=== PATIENT | female | born 1990 | race Asian ===

== ENCOUNTER 2017-05-28 02:40 | Inpatient (IN) | payer SELFPAY ==
[~2017-05-28] VITALS: Ht 162 cm; Wt 47.0 kg
[2017-05-28] MEDS: LACTATED RINGERS 1,000 ML IV SCH ×2 (03:25→04:40)
[2017-05-28] MEDS ORDERED: NALBUPHINE HYDROCHLORIDE 10 MG/ML VIAL ONE (03:44)
[2017-05-28] MEDS ORDERED: PROMETHAZINE 25 MG/ML VIAL ONE (03:44)
[2017-05-28 03:48] LABS: APPEARANCE,URINE CLEAR (CLEAR); BILIRUBIN,URINE NEGATIVE (NEGATIVE); BLOOD, URINE NEGATIVE (NEGATIVE); COLOR,URINE YELLOW (YELLOW); LEUKOCYTE ESTERASE ,URINE NEGATIVE (NEGATIVE); NITRITE, URINE NEGATIVE (NEGATIVE); PH,URINE 6.5 (5.0-9.0); UGLUCOSE NEGATIVE (NEGATIVE)
[2017-05-28] MEDS ORDERED: PROMETHAZINE 25 MG/ML VIAL IVP PRN (03:50)
[2017-05-28] MEDS ORDERED: NALBUPHINE 10 MG/ML AMP IVP PRN ×2 (03:50→06:35)
[2017-05-28 03:51] LABS: BASOPHILS # (AUTO) 0.5 K/uL (0.00-0.22); BASOPHILS % (AUTO) 4.2 % (0.0-2.0); EOSINOPHILS # (AUTO) 0.1 K/uL (0-0.4); EOSINOPHILS % (AUTO) 0.6 % (0.0-4.0); HEMATOCRIT 41.6 % (36-48); HEMOGLOBIN 13.7 g/dL (12.0-16.0); LYMPHOCYTES # (AUTO) 1.3 K/uL (2.5-16.5); LYMPHOCYTES % (AUTO) 11.6 % (20.5-51.1); MEAN CORPUSCULAR HEMOGLOBIN 30 pg (27-31); MEAN CORPUSCULAR HGB CONC 33 g/dL (33-37); MEAN CORPUSCULAR VOLUME 90.1 fL (80-94); MONOCYTES # (AUTO) 0.9 K/uL (0.8-1.0); MONOCYTES % (AUTO) 7.8 % (1.7-9.3); NEUTROPHILS # (AUTO) 8.8 K/uL (1.8-7.7); NEUTROPHILS % (AUTO) 75.8 % (42.2-75.2); PLATELET COUNT (AUTO) 135 K/uL (140-450); RED BLOOD CELL COUNT(AUTO) 4.61 MIL/uL (4.20-5.40); RED CELL DISTRIBUTION WIDTH 13.4 % (11.6-13.7); WHITE BLOOD COUNT (AUTO) 11.6 K/uL (4.8-10.8)
[2017-05-28] MEDS ORDERED: ceFAZolin 1,000 MG VIAL ONE (05:36)
[2017-05-28] MEDS ORDERED: MIDAZOLAM 2 MG/2 ML VIAL ONE (06:01)
[2017-05-28] MEDS ORDERED: MORPHINE PRES FREE 10 MG/10 ML AMP IV ONE (06:02)
[2017-05-28] MEDS ORDERED: OXYTOCIN 10 UNITS/ML VIAL ONE (06:15)
[2017-05-28] MEDS ORDERED: TRIAMCINOLONE 40 MG/ML 5ML VIAL ONE (06:15)
[2017-05-28] MEDS ORDERED: METHYLERGONOVINE 0.2 MG/ML AMP ONE (06:15)
[2017-05-28] MEDS ORDERED: PREN-546 PO (06:16)
[2017-05-28] MEDS ORDERED: OXYTOCIN 20 UNITS in LACTATED RINGERS 1,000 ML IV SCH ×2 (06:32→06:36)
[2017-05-28] MEDS ORDERED: NALOXONE 0.4 MG/ML VIAL IVP PRN ×3 (06:35)
[2017-05-28] MEDS ORDERED: ONDANSETRON 4 MG/2 ML VIAL IVP PRN ×2 (06:35)
[2017-05-28] MEDS ORDERED: HYDROmorphone PFS 2 MG/ML SYR IVP PRN (06:35)
[2017-05-28] MEDS ORDERED: diphenhydrAMINE 50 MG/ML VIAL IVP PRN ×2 (06:35)
[2017-05-28] MEDS ORDERED: MEPERIDINE 25 MG/ML SYR IVP PRN (06:35)
[2017-05-28] MEDS ORDERED: METHYLERGONOVINE 0.2 MG/ML AMP IM PRN (06:40)
[2017-05-28] MEDS ORDERED: TRIMETHOBENZAMIDE 200 MG/2 ML SYR IM PRN (06:40)
[2017-05-28] MEDS ORDERED: oxyCODONE/APAP 5/325 MG 1 TAB TAB PO PRN (06:40)
[2017-05-28] MEDS ORDERED: HYDROcodone/APAP 5/325 MG 1 TAB TAB PO PRN (06:40)
[2017-05-28] MEDS ORDERED: SIMETHICONE 80 MG TAB.CHEW PO PRN (06:40)
[2017-05-28] MEDS ORDERED: MEASLES, MUMPS, AND RUBELLA 1 VIAL SQVAC PRN (06:40)
[2017-05-28] MEDS ORDERED: TEMAZEPAM 15 MG CAP PO PRN (06:40)
[2017-05-28] MEDS ORDERED: OXYTOCIN 20 UNITS/LR PREMIX 1,000 ML IV ONE (06:54)
[2017-05-28] MEDS ORDERED: diphenhydrAMINE 50 MG/ML VIAL ONE (06:54)
[2017-05-28] MEDS ORDERED: ONDANSETRON 4 MG/2 ML VIAL ONE (06:54)
[2017-05-28] MEDS ORDERED: KETOROLAC 30 MG/ML VIAL IM/IVP SCH (12:00)
[2017-05-28 12:02] LABS: RAPID PLASMA REAGIN NON-REACTIVE (Non Reactiv)
--- NOTE | 2017-05-28 12:27 | NUR ---
PATIENT HAS BEEN SCREENED AND CATEGORIZED LOW NUTRITION RISK. PATIENT WILL BE SEEN WITHIN 7 DAYS OF ADMISSION. 06/03/[address]
[2017-05-28] MEDS ORDERED: DOCUSATE SOD/SENNA 50/8.6 MG 1 TAB PO SCH (21:00)
[2017-05-29 09:17] LABS: HEMATOCRIT 37.9 % (36-48); HEMOGLOBIN 12.7 g/dL (12.0-16.0); MEAN CORPUSCULAR HEMOGLOBIN 30 pg (27-31); MEAN CORPUSCULAR HGB CONC 34 g/dL (33-37); MEAN CORPUSCULAR VOLUME 89.6 fL (80-94); PLATELET COUNT (AUTO) 146 K/uL (140-450); RED BLOOD CELL COUNT(AUTO) 4.23 MIL/uL (4.20-5.40); RED CELL DISTRIBUTION WIDTH 13.3 % (11.6-13.7); WHITE BLOOD COUNT (AUTO) 25.5 K/uL (4.8-10.8)
[2017-05-29 09:41] LABS: LYMPHOCYTES % (MANUAL) 15 % (20-46); MONOCYTES % (MANUAL) 6 % (5-12)
[2017-05-29] MEDS: IBUPROFEN 800 MG TAB PO PRN (10:40)
[2017-05-29] MEDS ORDERED: BETHANECHOL 25 MG TAB PO SCH (15:00)
[2017-05-30] MEDS: IBUPROFEN 800 MG TAB PO PRN (01:15)
[2017-05-30] MEDS: DOCUSATE SODIUM 100 MG GELCAP PO PRN (10:45)
[2017-05-31] MEDS ORDERED: SODIUM PHOSPHATE 118 ML ENEM RC STA (07:36)
[2017-05-31] MEDS: DOCUSATE SODIUM 100 MG GELCAP PO PRN (07:52)
[2017-05-31] MEDS: IBUPROFEN 800 MG TAB PO PRN (07:52)
== END 2017-05-31 19:40 | disposition home or self-care (01) | DRG 766 ==
LOC: MFCC 02:40
PROVIDERS: ADMIT Obstetrics & Gynecology; ATTEND Obstetrics & Gynecology
PROC: 10D00Z1 Extraction of Products of Conception, Low, Open Approach (ICD-10-PCS; principal; 2017-05-28 05:00)
PROC: 3E0234Z Introduction of Serum, Toxoid and Vaccine into Muscle, Percutaneous Approach (ICD-10-PCS; 2017-05-31)
DX: O34.211 Maternal care for low transverse scar from previous cesarean delivery (principal); O89.4 Spinal and epidural anesthesia-induced headache during the puerperium; Z23 Encounter for immunization; Z37.0 Single live birth; Z3A.38 38 weeks gestation of pregnancy
CPT/HCPCS: 36415; 81003; 85025; 86592; 86886; 86900; 86901; 90715; J0690; J1200; J2210; J2250; J2270; J2300; J2405; J2550; J2590; J3301; J7060; J7120